=== PATIENT | male | born 1980 | race Two or more races ===

== ENCOUNTER 2024-12-04 09:10 | Emergency (ER) | payer MEDICAID, SELFPAY ==
[2024-12-04 09:17] VITALS: BP 116/72; PULSE 55; RESP 16; TEMP 36.5; O2SAT 100; BMI 26.7
--- NOTE | 2024-12-04 09:22 | PD.EDRME ---
Rapid Medical Screening Exam RME Arrival date/time: 12/04/24 09:10 34-year-old male with no known medical history presents to the emergency room with a chief complaint of a laceration to his left thumb 4th and 5th digit that occurred 1 hour ago while using a skill saw. I have greeted and performed a focused initial assessment of this patient. A comprehensive ED assessment and evaluation of the patient, analysis of all test results, and completion of the medical decision making process will be conducted by additional ED providers. Chief Complaint: Wound/Laceration Time Seen by Provider: 12/04/24 09:12 Vital signs: Vital Signs Temperature 97.7 F 12/04/24 09:17 Pulse Rate 55 L 12/04/24 09:17 Respiratory Rate 16 12/04/24 09:17 Blood Pressure 116/72 12/04/24 09:17 Pulse Oximetry (%) 100 12/04/24 09:17 Oxygen Delivery Method Room Air 12/04/24 09:17 Vital signs reviewed by provider: Yes
--- NOTE | 2024-12-04 09:24 | XR_ITS ---
Examination: Hand, left 3 views Technique: Hand AP, oblique, lateral 3 views Date and time of exam: December 04, 25 at 0930 hrs. Indications: Laceration to the hand today with first digit pain. Findings: No acute fracture Soft tissue laceration first digit. No opaque foreign body Impression: No opaque foreign body
[2024-12-04] MEDS: LIDOCAINE HCL 1% 20 ML VIAL INFL (09:33)
[2024-12-04] MEDS: DIPHTH,PERTUSS(ACELL),TET VAC 0.5 ML SYR- ADULT IMi (09:33)
--- NOTE | 2024-12-04 09:43 | PD.EDWOUND ---
ED Wound/Laceration-RME/HPI General Chief Complaint: Wound/Laceration Stated Complaint: LACERATION TO LEFT THUMB AND FINGERS WITH SAW Time Seen by Provider: 12/04/24 09:12 Arrival date/time: 12/04/24 09:10 Limitations: no limitations RME / HPI RME / HPI narrative: 12/04/24 09:10 34-year-old male with no known medical history presents to the emergency room with a chief complaint of a laceration to his left thumb 4th and 5th digit that occurred 1 hour ago while using a skill saw. I have greeted and performed a focused initial assessment of this patient. A comprehensive ED assessment and evaluation of the patient, analysis of all test results, and completion of the medical decision making process will be conducted by additional ED providers. DR. CAMPOS MAIN ED EVALUATION: 34 year old male presents to the ED for evaluation of laceration to left thumb by circular saw that occurred ~ 1 hour [employer]. States he was cutting pieces of wood on the trash can when the saw kicked back and cut the left thumb and nicked the tip of the left middle finger. No other injuries reported. Past does not recall when he last received his tetanus vaccine. Related Data Previous Rx's ?Medication ?Instructions ?Recorded cephalexin 250 mg capsule 250 mg PO Q6H #40 caps 12/04/24 hydrocodone 5 mg-acetaminophen 325 1 tab PO Q6H PRN pain #20 tabs 12/04/24 mg tablet Allergies Allergy/AdvReac Type Severity Reaction Status Date / Time NKA Allergy Uncoded 12/04/24 09:13 Review of Systems Review of Systems Narrative Review of Systems: GEN: No fever, no chills EYES: No discharge, no pain HEENT: No ear pain, no congestion, no sore throat PULM: No shortness of breath, no cough, no congestion CV: No chest pain, no palpitations GI: No nausea, no vomiting : No frequency, no urgency, no dysuria MUSC/SKEL: +left thumb and left middle finger injuries, no back pain SKIN: No rash NEURO: No weakness, no headache Past Medical History Past Medical History CARDIAC: Negative Congestive Heart Failure RESPIRATORY: Negative Chronic Obstructive Pulmonary Disease (COPD) GENITOURINARY: Negative Renal Disease ENDOCRINE: Positive Diabetes Mellitus Type 2; Negative Diabetes Mellitus Type 1 Family History FAMILY HISTORY: Negative Family Cancer Social History SMOKING STATUS: Never smoker ED Exam General Limitations: Present no limitations General appearance: Present alert and in no apparent distress Head Head exam: Present atraumatic, normocephalic and normal inspection Eye Eye exam: Present normal appearance, PERRL and EOMI ENT ENT exam: Present normal exam, normal oropharynx and mucous membranes moist Neck Neck exam: Present normal inspection, full ROM and trachea midline Chest Chest inspection: Present normal inspection and symmetric chest wall rise Respiratory Respiratory exam: Present normal lung sounds bilaterally Cardiovascular Cardiovascular exam: Present regular rate, normal rhythm and normal heart sounds Abdominal Exam Abdominal exam: Present soft and normal bowel sounds Extremities Exam Extremities exam: Present normal inspection, full ROM and other (partial saw abrasion on the 3rd and 4th nails, defect on the palmar side measuring 2.5cm x 2.0cm with the palmar skin on the thumb removed completely down to subcutaneous tissue, no tendon injury, tendon is still covered and appears intact, no bony structures seen) Back Exam Back exam: Present normal inspection and full ROM Neurological Exam Neurological exam: Present alert, oriented X3 and CN II-XII intact Psychiatric Psychiatric exam: Present normal affect and normal mood Skin Skin exam: Present warm, dry, intact and normal color Course Quality Measures none Orders Category Date Time Status Set Up Suture Tray STAT Care 12/04/24 09:25 Completed Wound Care NOW Care 12/04/24 09:25 Completed XR hand comp LT min 3V Stat Exams 12/04/24 09:24 Completed Lidocaine 1% 20 ml [Xylocaine 1% 20 ML] Med 12/04/24 09:24 Discontinued 20 ml INFL X1 ONE TET,DIP/PERT AC (Adult)-Tdap [Boostrix Adult (Tdap) Med 12/04/24 09:24 Discontinued Vacc] 0.5 ml IMI .ONCE ONE Vital Signs Vital signs: Vital Signs Temperature 97.7 F 12/04/24 09:17 Pulse Rate 55 L 12/04/24 09:17 Respiratory Rate 16 12/04/24 09:17 Blood Pressure 116/72 12/04/24 09:17 Pulse Oximetry (%) 100 12/04/24 09:17 Oxygen Delivery Method Room Air 12/04/24 09:17 Pulse ox is 100% on room air which is adequate. Wound / Laceration MDM Narrative MDM Narrative:: Maxine Kilgore am scribing for and in the presence of Dr. Campos. A 34-year-old male presents with a laceration to his left thumb and a minor jose roberto to his left middle finger sustained 1 hour [employer] from a circular saw kickback. The left hand was soaked, cleaned, and dressed appropriately. The patient was advised to follow up with his primary care physician for referral to a hand surgeon. Pain management was discussed, and wound care instructions were provided. Tetanus immunization status is up to date. Disposition: Discharged with instructions for follow-up with PCP and wound care. Return to the ED if signs of infection or worsening symptoms occur. Patient data External records reviewed:: [facility] previous records (Per EMR, no previous visits for review ) Clinical information provided by:: patient Social determinants that could affect healthcare access:: alcohol use (Occasional ) Patient has the following chronic illnesses:: Patient reports he is pre diabetic How is presenting disease/condition affected by chronic disease/condition?: exacerbated by Evaluation data The following diagnostics were reviewed and interpreted by me:: lab results and radiology exam(s) Lab and/or radiology exams considered but not ordered:: None Interpretation Summary: Ordering Physician: Sky Gray Date of Service: 12/04/24 Procedure(s): XR hand comp LT min 3V Accession Number(s): [id number] cc: Sky Gray; Russel Garcia MD; Riley Kiran MD~ Examination: Hand, left 3 views Technique: Hand AP, oblique, lateral 3 views Date and time of exam: December 04 at 0930 hrs. Indications: Laceration to the hand today with first digit pain. Findings: No acute fracture Soft tissue laceration first digit. No opaque foreign body Impression: No opaque foreign body Dictated By: Riley Kiran MD Signed By: <Electronically signed by Riley Kiran MD in [place]> 12/04/24 1028 Medications / Prescriptions Medications or Prescriptions considered but not ordered:: None Medication administrations:: Medication Administration History Discontinued Medications Diphtheria/Tetanus/Acell Pertussis (Diphth,Pertuss(Acell),Tet Vac 0.5 Ml Syr- Adult) 0.5 ml IMi .ONCE ONE Stop: 12/04/24 09:25 Last Admin: 12/04/24 09:33 Dose: 0.5 ml Documented By: SARAH Lidocaine HCl (Lidocaine Hcl 1% 20 Ml Vial) 20 ml INFL X1 ONE Stop: 12/04/24 09:25 Last Admin: 12/04/24 09:33 Dose: 20 ml Documented By: SARAH Comments: MEDICATION GIVEN TO PROVIDER AT THIS TIME. See above Consultations Consultation(s) initiated? (list below): No Diagnosis Wound Differential Diagnosis: laceration, abrasion and avulsion of skin Most likely diagnosis given after review of the tests above:: Skill saw injury to left hand Skin defect palmar thumb Abrasions to left 3rd and 4th nails Admission Indicated Admission indicated?: not indicated Explain why admission is indicated or not indicated:: Does not meet admission criteria Admission Request Was there a request for admission?: No Disposition Plan Disposition Plan: Discharge Discharge Attestation Discharge Attestation: The patient and all family members were given an opportunity to ask questions and understood the discharge instructions. Discharge instructions specifically effects, indications for sooner follow up or return to the emergency department, and the expected course of current diagnosis. Patient condition: Stable Discharge Plan Plan Patient Disposition: HOME (Self Care) Prescriptions/Referrals Prescriptions/Med Rec: New cephalexin 250 mg capsule 250 mg PO Q6H Qty: 40 0RF hydrocodone-acetaminophen 5-325 mg tablet 1 tab PO Q6H MDD 6 PRN (Reason: pain) Qty: 20 0RF Problem List Clinical Impression: Contact with powered saw as cause of accidental injury, Defect of skin of hand, Abrasion of finger of left hand Patient/Caregiver Discharge Instructions Education Materials: ED Abrasions Additional Instructions: Follow up with your doctor tomorrow for referral to see a hand or plastic surgeon for further treatment and skin graft. Print Language: [place] Stand Alone Forms: Nina Award Info., Patient Portal Info Letter
== END 2024-12-04 12:19 | disposition home or self-care (01) ==
PROVIDERS: Emergency Provider Family Medicine; PCP Family Medicine
DX: S61.012A Laceration without foreign body of left thumb without damage to nail, initial encounter (principal); W31.2XXA Contact with powered woodworking and forming machines, initial encounter; Z23 Encounter for immunization
CPT/HCPCS: 73130; 90471; 90715; 99283; A4565; J3490